=== PATIENT | male | born 1955 | race Caucasian/White ===

== ENCOUNTER 2021-01-17 16:41 | Emergency (ER) | payer OTHER ==
[~2021-01-17] VITALS: Ht 195.6 cm; Wt 108.9 kg
[2021-01-17 16:41] VITALS: BP 125/86
--- NOTE | 2021-01-17 16:41 | NUR ---
Patient BIBA ALS accompanied by [facility], transferred to bed 3. RN evaluating the patient at bedside.
--- NOTE | 2021-01-17 16:56 | NUR ---
65 Y/O MALE BIBA FROM HOME, GF CALLED 911 WHEN PT WAS NOT RESPONDING, PT C/O ETOH INTOXICATION AND GENERALIZED WEAKNESS. HX CARDIAC, HIGH CHOLESTEROL
--- NOTE | 2021-01-17 17:35 | NUR ---
Lab at bedside for blood draw.
[2021-01-17 17:46] LABS: BASOPHILS % (AUTO) 0.9 % (0.0-2.0); EOSINOPHILS # (AUTO) 0.1 K/uL (0-0.4); EOSINOPHILS % (AUTO) 2.2 % (0.0-4.0); HEMATOCRIT 39.6 % (36-52); HEMOGLOBIN 13.2 g/dL (12.0-18.0); LYMPHOCYTES # (AUTO) 0.8 K/uL (2.0-11.5); LYMPHOCYTES % (AUTO) 21.5 % (20.5-51.1); MEAN CORPUSCULAR HEMOGLOBIN 35 pg (27-31); MEAN CORPUSCULAR HGB CONC 34 g/dL (33-37); MEAN CORPUSCULAR VOLUME 104.4 fL (80-94); MONOCYTES # (AUTO) 0.2 K/uL (0.8-1.0); MONOCYTES % (AUTO) 4.8 % (1.7-9.3); NEUTROPHILS # (AUTO) 2.5 K/uL (1.8-7.7); NEUTROPHILS % (AUTO) 70.6 % (42.2-75.2); PLATELET COUNT (AUTO) 115 K/uL (140-450); RED BLOOD CELL COUNT(AUTO) 3.79 MIL/uL (4.20-6.10); RED CELL DISTRIBUTION WIDTH 15.8 % (11.6-13.7); WHITE BLOOD COUNT (AUTO) 3.6 K/uL (4.8-10.8)
--- NOTE | 2021-01-17 17:47 | NUR ---
Patient tearful in bed, denies pain. Unable to state reason he is crying.
[2021-01-17] MEDS: NACL 0.9% 1,000 ML IV ONE (17:55)
--- NOTE | 2021-01-17 17:55 | NUR ---
Unable to obtain IV access. NICKOLAS Almendarez made aware.
[2021-01-17 18:01] LABS: ALBUMIN 3.3 g/dL (3.4-5.0); ANION GAP 19.6 (8-16); CARBON DIOXIDE 18.9 mmol/L (21-32); POTASSIUM 3.5 mmol/L (3.5-5.1); TOTAL BILIRUBIN 0.6 mg/dL (0.0-1.0)
[2021-01-17] MEDS: ONDANSETRON 4 MG ODT PO ONE (18:33)
--- NOTE | 2021-01-17 18:37 | NUR ---
Pt unable to give urine at this time. NICKOLAS Almendarez made aware.
[2021-01-17 20:04] VITALS: BP 125/86
--- NOTE | 2021-01-17 20:04 | NUR ---
Patient discharged with v/s stable. Written and verbal after care instructions given and explained. Patient verbalized understanding. Ambulatory with steady gait. All questions addressed prior to discharge. Advised to follow up with PMD. pt AMBULATED TO [facility] AND WILL BE ATTEMPTING TO OBTAIN RIDE HOME.
== END 2021-01-17 20:04 | disposition home or self-care (01) ==
LOC: MED 16:41
DX: F10.129 Alcohol abuse with intoxication, unspecified (principal); R53.1 Weakness; F17.210 Nicotine dependence, cigarettes, uncomplicated; I11.9 Hypertensive heart disease without heart failure; Z71.6 Tobacco abuse counseling
CPT/HCPCS: 36415; 80053; 85025; 99284; G0482; Q0162; 93005